=== PATIENT | male | born 1945 | race Caucasian/White ===

== ENCOUNTER 2016-11-16 09:09 | Inpatient (IN) ==
[2016-11-11 13:51] LABS: Basophils # (Auto) 0 K/mcL (0.0-0.3); Basophils % (Auto) 0.5 % (0.0-2.0); Eosinophils # (Auto) 0.4 K/mcL (0.0-0.7); Granulocytes % (Auto) 47.3 % (38.0-78.0); Lymphocytes # (Auto) 3.3 K/mcL (1.5-4.8); Lymphocytes % (Auto) 37.2 % (15.5-49.0); Mean Corpuscular HGB Conc 32.1 g/dL (31.0-36.0); Mean Corpuscular Hemoglobin 30.2 pg (26.0-34.0); Platelet Count 359 K/mcL (140-440); RBC 5.01 M/mcL (4.50-5.90); Red Cell Distribution Width 13.3 % (11.5-14.5)
[2016-11-11 14:14] LABS: Blood Urea Nitrogen 18 mg/dl (8-23)
[2016-11-11 15:19] LABS: Appearance,Urine CLEAR; Bacteria,Urine 0 /hpf (0); Bilirubin,Urine NEG (NEG); Color,Urine P.YELL; Glucose,Urine (UA) NORM (NEG); Leukocyte Esterase,Urine NEG /uL (NEG); Mucus,Urine FEW /hpf (0); Nitrate,Urine NEG (NEG); Protein,Urine NEG (NEG); Specific Gravity,Urine 1.021 (1.000-1.035); Urine Blood TRACE mg/dL (<0.03); Urine RBC 12 /hpf (0-1); Urine Squamous Epithelial Cell < 1 /hpf (0-4); Urine WBC 1 /hpf (0-4); Urobilinogen,Urine NORM (NEG)
[~2016-11-16 09:09] MED LIST: ACETAMINOPHEN 500 MG TABLET PO SCH; CELECOXIB 200 MG CAPSULE PO SCH; PREGABALIN 150 MG CAPSULE PO SCH; ceFAZolin 1 GM VIAL IV SCH; oxyCODONE 10 MG TAB.ER.12H PO SCH
[2016-11-16] MEDS ORDERED: TRANEXAMIC ACID 1,000 MG/10 ML VIAL IV ONE (12:40)
[2016-11-16] MEDS ORDERED: DEXAMETHASONE 10 MG/ML VIAL IV ONE (12:40)
[2016-11-16] MEDS ORDERED: ONDANSETRON 4 MG/2 ML VIAL IV ONE (12:40)
[2016-11-16] MEDS ORDERED: PHENYLEPHRINE 10 MG/ML VIAL IV ONE (12:40)
[2016-11-16] MEDS ORDERED: PROPOFOL 200 MG/20 ML VIAL IV ONE (12:40)
[2016-11-16] MEDS ORDERED: ePHEDrine 50 MG/ML AMPUL IV ONE (12:40)
[2016-11-16] MEDS ORDERED: SUCCINYLCHOLINE 20 MG/ML ML IV ONE (12:40)
[2016-11-16] MEDS ORDERED: LIDOCAINE HCL/PF 100 MG/5 ML SYRINGE IV ONE (12:40)
[2016-11-16] MEDS ORDERED: MIDAZOLAM 5 MG/5 ML VIAL IV ONE (12:40)
[2016-11-16] MEDS ORDERED: GLYCOPYRROLATE 0.2 MG/ML VIAL IV ONE (12:40)
[2016-11-16] MEDS ORDERED: PROMETHAZINE 25 MG/ML VIAL IM ONE (13:16)
[2016-11-16] MEDS ORDERED: fentaNYL 100 MCG/2 ML VIAL IV PRN (13:16)
[2016-11-16] MEDS ORDERED: ONDANSETRON 4 MG/2 ML VIAL IV PRN ×2 (13:16→14:09)
[2016-11-16] MEDS ORDERED: HYDROmorphone 2 MG/ML SYRINGE IV PRN ×2 (13:16→15:17)
[2016-11-16] MEDS ORDERED: METHOCARBAMOL 1,000 MG/10 ML VIAL IV PRN (13:16)
[2016-11-16] MEDS ORDERED: BENZOCAINE/MENTHOL 1 LOZENGE PO PRN ×2 (13:16→14:09)
[2016-11-16] MEDS ORDERED: FLUMAZENIL 0.1 MG/ML ML IV PRN (13:16)
[2016-11-16] MEDS ORDERED: IPRATROPIUM/ALBUTEROL 3 ML AMPUL.NEB NEB PRN (13:16)
[2016-11-16] MEDS ORDERED: NALOXONE HCL 0.4 MG/ML VIAL IV PRN (13:16)
[2016-11-16] MEDS ORDERED: LACTATED RINGERS 250 ML IV PRN (13:16)
[2016-11-16] MEDS ORDERED: diphenhydrAMINE 50 MG/ML VIAL IV PRN (13:16)
[2016-11-16] MEDS ORDERED: METOCLOPRAMIDE 10 MG/2 ML VIAL IV PRN (13:16)
[2016-11-16] MEDS ORDERED: MEPERIDINE 50 MG/ML SYRINGE IM ONE (13:16)
[2016-11-16] MEDS ORDERED: ePHEDrine 50 MG/ML AMPUL IV PRN (13:16)
[2016-11-16] MEDS ORDERED: MEPERIDINE 25 MG/ML SYRINGE IV PRN (13:16)
[2016-11-16] MEDS ORDERED: PROMETHAZINE 25 MG/ML VIAL IV PRN (13:16)
[2016-11-16] MEDS ORDERED: LACTATED RINGERS 1,000 ML IV SCH (13:30)
[2016-11-16] MEDS ORDERED: GENTAMICIN SULFATE 800 MG/20 ML VIAL IR ONE (13:43)
[2016-11-16] MEDS ORDERED: MAGNESIUM HYDROXIDE 30 ML ORAL.SUSP PO PRN (14:09)
[2016-11-16] MEDS ORDERED: KETOROLAC 15 MG/ML VIAL IV PRN (14:09)
[2016-11-16] MEDS ORDERED: ACETAMINOPHEN 325 MG TABLET PO PRN (14:09)
[2016-11-16] MEDS ORDERED: POLYETHYLENE GLYCOL 3350 17 GM PACKET PO PRN (14:09)
[2016-11-16] MEDS ORDERED: BISACODYL 10 MG SUPP.RECT PR PRN (14:09)
[2016-11-16] MEDS ORDERED: FLEETS ADULT ENEMA PR PRN (14:09)
[2016-11-16] MEDS ORDERED: TRANEXAMIC ACID 1,000 MG/10 ML VIAL IV SCH (14:09)
--- NOTE | 2016-11-16 14:13 | Brief Operative Note ---
Date of procedure: 11/16/16 Pre-op diagnosis: left hip djd Post-op diagnosis: same Procedure: left total hip Grafts/Implants: Yes Anesthesia: GETA Complications: none Complications Description: 11/16/16 14:13 none Surgeon: Jean Farmer Cloth Dye Range Operator: Dong Ng Estimated blood loss (cc): 200 Specimens Removed/Pathology: none sent Condition: stable Disposition: PACU
--- NOTE | 2016-11-16 15:03 | Operative Note ---
DATE OF OPERATION: 11/16/2016 PREOPERATIVE DIAGNOSIS: Left hip degenerative arthritis. POSTOPERATIVE DIAGNOSIS: Left hip degenerative arthritis. PROCEDURE: Left total hip arthroplasty, cemented stem, cementless cup with a dual mobility ball with a +5 ceramic neck length. SURGEON: Jean Farmer MD. CLERICAL PRODUCTION WORKER: Dong Ng PA-C. ANESTHESIA: General LMA anesthesia. COMPLICATIONS: None. DESCRIPTION OF PROCEDURE: The patient was brought to the operating room and put to sleep with general LMA anesthesia. Once asleep, the patient had the left leg sterilely prepped and draped in the usual sterile fashion. Once this was done and confirmed as the operative site, preop antibiotics and tranexamic acid given. We then made a superior posterior approach to the hip, identified the superior posterior capsule. We made an incision, dislocated the hip superiorly, made our neck cut at 35 mm which is about the lesser trochanter level. This was removed. We then reamed up to the size 55, implanted a 56 cup with one 35 mm screw, a dual mobility liner, anteversion about 20 degrees, inclination 40 degrees. The stem was then broached up at about 15 degrees of anteversion. This seemed to fit very nicely, slightly lengthening the leg with a 10 mm prominence. At this point we took an x-ray to confirm leg length. We then sterilely prepped the left leg. Once it was sterilely prepped and draped, we then cemented into place a size 7 stem. Once dry and in 15 degrees of anteversion, we then placed a +5 ceramic neck with a dual mobility ball. This was reduced, very stable throughout the range of motion. Some spurs anteriorly had been removed. We irrigated thoroughly and checked leg length and offset. This seemed to match excellent, slightly longer. The patient tolerated this well without complication. RBH:jon Job ID: [id number] Doc ID: [id number] Jean Farmer MD
--- NOTE | 2016-11-16 15:25 | XRay Report ---
CLINICAL INFORMATION: Postop total hip prostheses COMPARISON: None. FINDINGS: Left total hip prostheses is in near anatomic alignment.. Soft tissue swelling and gas seen in the surgical site - as expected. Severe degeneration of the right hip is noted. No other osseous abnormality IMPRESSION: 1. Left hip prostheses in near anatomic alignment. 2. Severe degeneration right hip Interpreted and Authenticated by: Wolf Hamm 11/16/16
[2016-11-16] MEDS: 0.45 % SODIUM CHLORIDE 1,000 ML IV SCH (17:50)
[2016-11-16] MEDS: HYDROcodone/APAP 10/325MG TABLET PO PRN (19:21)
[2016-11-16] MEDS: DOCUSATE SODIUM 100 MG CAPSULE PO SCH (20:26)
[2016-11-16] MEDS: ASPIRIN 325 MG ENTERIC COATED TABLET PO SCH (20:26)
[2016-11-16] MEDS: SENNOSIDES 1 TABLET PO SCH (20:26)
[2016-11-16] MEDS: ceFAZolin 1 GM VIAL IV SCH (20:49)
[2016-11-16] MEDS ORDERED: TEMAZEPAM 15 MG CAPSULE PO PRN (21:00)
[2016-11-16] MEDS: 0.9 % SODIUM CHLORIDE 10 ML SYRINGE IV SCH (21:13)
[2016-11-17] MEDS: 0.45 % SODIUM CHLORIDE 1,000 ML IV SCH ×4 (00:30→20:50)
[2016-11-17] MEDS: HYDROcodone/APAP 10/325MG TABLET PO PRN ×4 (00:54→13:02)
[2016-11-17] MEDS: ceFAZolin 1 GM VIAL IV SCH (04:47)
[2016-11-17] MEDS: 0.9 % SODIUM CHLORIDE 10 ML SYRINGE IV SCH ×3 (05:31→22:15)
--- NOTE | 2016-11-17 07:47 | Orthopedic Progress Note ---
Subjective Patient information: Note initiated : 11/17/16 at 7:46 am Service Date, if different from initiated Date: [] Patient: Ian Butterfield 71 y/o M admitted on 11/16/16 for Left Total Hip Arthroplasty. Chief Complaint: [Pt is stable this morning on post operative day 1 without any significant concerns or complaints. Patients vital signs have remained stable. Patients dressing is dry and exhibits a grossly intact neurovascular and neuromotor exam. Patients 10 point ROS is otherwise negative. ] Objective Vital signs: Vital Signs Temp Pulse Resp BP BP Pulse Ox 11/17/16 07:41 97.8 F 79 20 108/67 95 11/17/16 04:00 98.2 F 88 20 101/60 97 11/17/16 00:00 98.3 F 89 20 112/60 97 11/16/16 21:36 98 11/16/16 20:00 97.3 F L 82 20 115/67 98 11/16/16 17:13 81 125/72 98 11/16/16 16:59 61 106/61 98 11/16/16 16:44 74 109/71 98 11/16/16 16:28 78 116/71 96 11/16/16 16:13 80 107/68 97 11/16/16 15:58 76 103/63 94 11/16/16 15:52 73 11/16/16 15:45 96.1 F L 75 10 L 94/62 97 11/16/16 15:22 97.0 F L 84 14 95/56 100 11/16/16 15:15 97.0 F L 88 12 102/53 96 11/16/16 15:00 82 14 99/53 94 11/16/16 14:45 90 15 119/58 98 11/16/16 14:30 98.9 F 93 H 12 109/60 95 11/16/16 09:41 97.4 F L 18 161/84 97 Intake and Output 11/16/16 11/17/16 11/17/16 21:59 05:59 13:59 Intake Total 1700 / 1700 1725 / 1725 Output Total 400 / 400 950 / 950 Balance 1300 / 1300 775 / 775 Intake: IV 1000 / 1000 Sodium Chloride 0.45% 1, 1000 / 1000 000 ml @ 100 mls/hr IV . Q10H [facility] Rx#:[id number] Oral 725 / 725 IV - Manual Only 1700 / 1700 Output: Urine Catheter Amount 750 / 750 Void Amount 0 / 0 200 / 200 Estimated Blood Loss 400 / 400 Other: Weight 198 lb Intake & Output: Intake & Output 11/16/16 11/17/16 11/17/16 21:59 05:59 13:59 Intake Total 1700 / 1700 1725 / 1725 Output Total 400 / 400 950 / 950 Balance 1300 / 1300 775 / 775 Weight 198 lb Intake: IV 1000 / 1000 Sodium Chloride 0.45% 1, 1000 / 1000 000 ml @ 100 mls/hr IV . Q10H [facility] Rx#:[id number] Oral 725 / 725 IV - Manual Only 1700 / 1700 Output: Urine Catheter Amount 750 / 750 Void Amount 0 / 0 200 / 200 Estimated Blood Loss 400 / 400 Incision: Yes healing Incision clean and dry: Yes Dressing: Yes clean, Yes dry Weight bearing status: full Neurological exam IM: Yes motor sensory intact, Yes neurovascular intact Extremities exam IM: Yes Foot pink and warm, Yes neurovascular intact - Labs CBC & BMP: 11/17/16 05:27 11/11/16 12:12 Labs: 11/17/16 11/11/16 05:27 12:12 Hgb 15.1 Hct 37.5 L 47.1 Assessment and Plan (1) Hx of total hip arthroplasty Patient has been educated regarding wound care and dressings, follow up recommendations, and medication use. We will f/u with the patient within 2-3 weeks for wound check. Status: Acute
--- NOTE | 2016-11-17 07:50 | Discharge Summary ---
Ortho Discharge - DENISE - Patient Instructions Diet: Regular Diet Activity: activity as tolerated, weight bearing as tolerated Total Hip Protocol: Follow activity instructions as provided by Physical Therapy. Dressing Care: May shower in 2 days Patient Education: Total Hip Replacement (DC) Additional Instructions: [facility] [phone] APPOINTMENT: WednesdayNovember 23. Check in at 1:15 for paperwork for your 1:30 appointment. Wear comfortable clothes. Take photo ID and insurance cards with you. Consider taking pain meds 45 min before physical therapy appointment. Do the exercises that Physical therapy gave you. computer support specialist instructor any equipment such as crutches walker, toilet riser or C.P.M. Your orders have been faxed to them. - Problem Maintenance (1) Hx of total hip arthroplasty Status: Acute - Follow Up Plan Follow Up Appointments: Dong Ng PA-C [Physician Distribution Warehouse Manager] - 12/01/16 8:40 am Disposition: Home, Self-Care Prognosis: Good Rehab Potential: Good I certify that the patient requires SNF services: No Overall status at discharge: patient is progressing back to baseline - Orders For Discharge Prescriptions: Aspirin [Ecotrin] 325 mg PO BID #60 tab.ec Docusate Sodium [Colace] 100 mg PO BID #60 capsule HYDROcodone/APAP 10/325MG [[place] 10/325Mg] 1 - 2 tab PO Q4HP PRN #75 tablet PRN Reason: Pain
[2016-11-17] MEDS: VITAMIN D3 1,000 UNIT TABLET PO SCH (08:45)
[2016-11-17] MEDS: ASPIRIN 325 MG ENTERIC COATED TABLET PO SCH ×2 (08:45→19:38)
[2016-11-17] MEDS: VITAMIN B COMPLEX 1 CAPSULE PO SCH (08:45)
[2016-11-17] MEDS: DOCUSATE SODIUM 100 MG CAPSULE PO SCH ×2 (08:45→19:38)
[2016-11-17] MEDS: SENNOSIDES 1 TABLET PO SCH (19:38)
[2016-11-17] MEDS ORDERED: TAMSULOSIN 0.4 MG CAPSULE PO SCH ×2 (21:00)
[2016-11-18] MEDS: HYDROcodone/APAP 10/325MG TABLET PO PRN ×2 (03:22→07:56)
[2016-11-18] MEDS: 0.9 % SODIUM CHLORIDE 10 ML SYRINGE IV SCH (05:28)
[2016-11-18] MEDS: 0.45 % SODIUM CHLORIDE 1,000 ML IV SCH (06:20)
--- NOTE | 2016-11-18 07:48 | Orthopedic Progress Note ---
Subjective Patient information: Note initiated : 11/18/16 at 7:47 am Service Date, if different from initiated Date: [] Patient: Ian Butterfield 71 y/o M admitted on 11/16/16 for Left Total Hip Arthroplasty. Chief Complaint: [feeling much better and walking well] Objective Vital signs: Vital Signs Temp Pulse Resp BP BP Pulse Ox 11/18/16 07:22 98.9 F 16 137/73 92 11/18/16 06:00 98.0 F 11/18/16 03:25 100.6 F H 103 H 16 144/75 96 11/17/16 23:29 99.8 F H 104 H 24 118/66 94 11/17/16 20:00 98.5 F 92 H 24 130/74 94 11/17/16 15:33 98.6 F 85 18 145/74 94 11/17/16 12:00 98.7 F 83 14 143/86 95 Intake and Output 11/17/16 11/18/16 11/18/16 21:59 05:59 13:59 Intake Total 400 / 400 Output Total 2900 / 2900 1275 / 1275 400 / 400 Balance -2900 / -2900 -875 / -875 -400 / -400 Intake: Oral 400 / 400 Output: Urine Catheter Amount 200 / 200 Void Amount 2900 / 2900 1075 / 1075 400 / 400 Other: Meal Dinner Percent of Meal Consumed 100% Feeding Ability Independent # Voids 1 Weight 197 lb 8 oz Intake & Output: Intake & Output 11/17/16 11/18/16 11/18/16 21:59 05:59 13:59 Intake Total 400 / 400 Output Total 2900 / 2900 1275 / 1275 400 / 400 Balance -2900 / -2900 -875 / -875 -400 / -400 Weight 197 lb 8 oz Intake: Oral 400 / 400 Output: Urine Catheter Amount 200 / 200 Void Amount 2900 / 2900 1075 / 1075 400 / 400 Other: Meal Dinner Percent of Meal Consumed 100% Feeding Ability Independent # Voids 1 Incision: Yes healing Incision clean and dry: Yes Dressing: Yes clean Weight bearing status: full Neurological exam IM: Yes oriented X3, Yes neurovascular intact Extremities exam IM: Yes Foot pink and warm (doing well will dc home today), Yes neurovascular intact - Labs CBC & BMP: 11/17/16 05:27 11/11/16 12:12 Labs: 11/17/16 11/11/16 05:27 12:12 Hgb 15.1 Hct 37.5 L 47.1
[2016-11-18] MEDS: ASPIRIN 325 MG ENTERIC COATED TABLET PO SCH (07:56)
[2016-11-18] MEDS: VITAMIN D3 1,000 UNIT TABLET PO SCH (07:56)
[2016-11-18] MEDS: VITAMIN B COMPLEX 1 CAPSULE PO SCH (07:56)
[2016-11-18] MEDS: DOCUSATE SODIUM 100 MG CAPSULE PO SCH (07:57)
== END 2016-11-18 08:50 | disposition home or self-care (01) | DRG 470 ==
LOC: MEDSUR 09:09
PROVIDERS: ADMIT Orthopaedic Surgery; ATTEND Orthopaedic Surgery